=== PATIENT | male | born 1965 | race Caucasian/White ===

== ENCOUNTER → 2016-08-17 | Outpatient (REF) ==
[~2016-08-17] MED LIST: LORTAB 5/500 501 TAB PO
== END ==
LOC: WSOH 07:58
DX: Z02.4 Encounter for examination for driving license (principal)

== ENCOUNTER 2017-05-31 11:03 | Emergency (ER) | payer OTHER ==
[~2017-05-31] VITALS: Ht 177.8 cm; Wt 108.6 kg
[2017-05-31 11:12] VITALS: TEMP 97.7
[2017-05-31 11:48] LABS: BASO # 0.1 (0.0-0.2); BASO % 0.8 % (0.0-2.0); EOS # 0.1 (0.0-0.7); EOS % 0.6 % (0-4.0); GRAN # 7.4 (1.4-6.5); GRAN % 73.5 % (42.2-75.2); HEMATOCRIT 45.9 % (42.0-52.0); HEMOGLOBIN 15.5 g/dl (13.5-18.0); LYMPH % 19.6 % (20.0-51.0); MEAN CELL VOLUME 83 fl (80.0-100.0); MEAN CORPUSCULAR HEMOGLOBIN 28 pg (27.0-31.0); MEAN CORPUSCULAR HGB CONC 34 g/dl (33.0-37.0); MEAN PLATELET VOLUME 11.4 fl (7.4-10.4); MONO # 0.5 (0.1-0.6); MONO % 5.1 % (1.7-9.3); PLATELET COUNT 251 K/mm3 (130-400); RED BLOOD COUNT 5.54 M/mm3 (4.20-5.60); REDCELL DISTRIBUTION WIDTH-CV 14.4 % (11.5-14.5)
[2017-05-31] MEDS ORDERED: NORCO 325 MG-51 TAB PO (13:56)
[2017-05-31 14:00] VITALS: BP 130/83; PULSE 62
== END 2017-05-31 14:15 | disposition home or self-care (01) ==
LOC: COL.ER 11:03
PROVIDERS: Family Medicine
DX: S82.852A Displaced trimalleolar fracture of left lower leg, initial encounter for closed fracture (principal); V59.88XA Occupant (driver) (passenger) of pick-up truck or van injured in other specified transport accidents, initial encounter
CPT/HCPCS: J3010; J7120; Q4045

== ENCOUNTER → 2018-09-21 | Outpatient (CLI) | payer OTHER ==
[~2018-09-21] MED LIST changes: +NORCO 325 MG-51 TAB PO
== END ==
LOC: COL.RAD 13:09
DX: S52.602A Unspecified fracture of lower end of left ulna, initial encounter for closed fracture (principal); S63.8X2A Sprain of other part of left wrist and hand, initial encounter; Z98.1 Arthrodesis status

== ENCOUNTER → 2019-03-11 | Outpatient (CLI) | payer OTHER | LOC: COL.RAD 13:44 | DX: M25.532 Pain in left wrist (principal) ==